=== PATIENT | female | born 1960 | race Caucasian/White ===

== ENCOUNTER → 2019-08-18 13:52 | Outpatient (BNVA) | payer OTHER, SELFPAY | PROVIDERS: Family Provider Nurse Practitioner Family; Referring Provider Chiropractor; Visit Provider Specialist | DX: R41.89 Other symptoms and signs involving cognitive functions and awareness (principal); R29.90 Unspecified symptoms and signs involving the nervous system; F07.81 Postconcussional syndrome; G43.711 Chronic migraine without aura, intractable, with status migrainosus | CPT/HCPCS: 99215 ==

== ENCOUNTER 2019-08-21 08:36 | Outpatient (CLI) | payer OTHER, SELFPAY ==
--- NOTE | 2019-08-21 08:45 | MR_ITS ---
WS: [id number] MRI BRAIN WITHOUT CONTRAST HISTORY: cognitive impairment COMPARISON: None available. TECHNIQUE: Diffusion imaging, multiplanar T1, T2 and FLAIR imaging obtained. No evidence for acute infarct or hemorrhage. Dinh-white matter differentiation is normal. There are numerous T2 and FLAIR signal hyperintensities in the periventricular white matter. Greater distribution on the RIGHT. No prior ischemic change in the yaron or cerebellum. Ventricles and extra-axial spaces are normal. No inferior displacement of cerebellar tonsils. The sella turcica and pituitary gland are unremarkabl e. Posterior fossa is also unremarkable. Dural venous sinuses and [place] demonstrate no abnormality on this unenhanced studies. Paranasal sinuses: Mild mucoperiosteal thickening in the ethmoid and frontal sinuses. No air-fluid le vels. Mastoid air cells: Normal. Calvarium and scalp: Intact. MR/MR head wo con* [id number] IMPRESSION: 1. No acute infarcts or significant atrophy. 2. Moderate chronic microvascular small vessel ischemic disease. Slightly grea ter involving the RIGHT cerebrum. No large territory prior infarct.
== END 2019-08-21 08:37 | disposition home or self-care (01) ==
LOC: RADSHAW 08:36
PROVIDERS: Family Provider Nurse Practitioner Family; Visit Provider Specialist
DX: R41.89 Other symptoms and signs involving cognitive functions and awareness (principal); I99.8 Other disorder of circulatory system
CPT/HCPCS: 70551

== ENCOUNTER 2019-08-27 14:01 | Outpatient (CLI) | payer OTHER, SELFPAY ==
--- NOTE | 2019-08-27 14:24 | XR_ITS ---
WS: [id number] LATERAL CERVICAL SPINE: 3 view. Lateral radiographs are performed in upright neutral, flexion and extension to the patient's toleranc e. HISTORY: CERVICALGIA COMPARISON: None available. C2: During extension 2 mm retrolisthesis otherwise normal alignment. C3: 2 mm retrolisthesis during extension. Less than 2 mm retrolisthesis on neutral imaging. C4: 4.1 mm retrolisthesis on neutral imaging. Retrolisthesis decreases to 2.4 mm on flexion and 4.7 m m on extension. C5: 2.3 mm retrolisthesis does not change with flexion or extension. Advanced degenerative disc disease and spondylosis at C4-5, C5-6 and C6-7. XR/XR cervical spine fl/ex [id number] IMPRESSION: 1. Retrolisthesis of C4 by 4.1 mm with flexion and extension instability. 2. Minimal, probably not significant, instability at C2 and C3 with flexion a nd extension.
== END 2019-08-27 14:02 | disposition home or self-care (01) ==
LOC: RAD 14:05
PROVIDERS: Family Provider Nurse Practitioner Family; Visit Provider Nurse Practitioner
DX: M53.2X2 Spinal instabilities, cervical region (principal); M54.2 Cervicalgia
CPT/HCPCS: 72040

== ENCOUNTER → 2019-09-24 10:52 | Outpatient (BNVA) | payer OTHER, SELFPAY | PROVIDERS: Family Provider Nurse Practitioner Family; Visit Provider Specialist | DX: G43.711 Chronic migraine without aura, intractable, with status migrainosus (principal); F07.81 Postconcussional syndrome; Z87.891 Personal history of nicotine dependence | CPT/HCPCS: 96116; 99214 ==

== ENCOUNTER → 2019-12-28 12:31 | Outpatient (BNVA) | payer OTHER, SELFPAY | PROVIDERS: Family Provider Nurse Practitioner Family; Visit Provider Specialist | DX: G43.711 Chronic migraine without aura, intractable, with status migrainosus (principal); F07.81 Postconcussional syndrome | CPT/HCPCS: 99213 ==

== ENCOUNTER → 2020-03-01 08:07 | Outpatient (BNVA) | payer OTHER, SELFPAY | PROVIDERS: Family Provider Nurse Practitioner Family; Visit Provider Specialist | DX: F07.81 Postconcussional syndrome (principal); Z87.891 Personal history of nicotine dependence | CPT/HCPCS: 99214 ==

== ENCOUNTER → 2021-12-06 10:18 | Outpatient (BNVA) | payer OTHER, SELFPAY | PROVIDERS: Family Provider Nurse Practitioner Family; Visit Provider Obstetrics & Gynecology | DX: Z01.419 Encounter for gynecological examination (general) (routine) without abnormal findings (principal) | CPT/HCPCS: 88175 ==